=== PATIENT | female | born 1950 | race Caucasian/White ===

== ENCOUNTER 2016-10-16 08:36 | Emergency (ER) | payer MEDICARE, BC ==
[2016-10-16] MEDS ORDERED: NORMAL SALINE 1,000 ML IV ONE (08:50)
--- NOTE | 2016-10-16 08:50 | ERNOTE ---
Medical Problem HPI - General Chief Complaint: General Assessment Time Seen by Provider: 10/16/16 08:47 Source: patient Exam Limitations: no limitations - Immun/Allergies/Home Medications Immunizations: IMMUNIZATION HX Immunizations Up to Date Yes Allergies/Adverse Reactions: Allergies lorazepam Allergy (Verified 10/16/16 08:49) Home Medications: HOME MEDICATIONS Albuterol Sulfate [Proair Hfa] 8.5 gm IH PRN 07/23/15 [Last Taken Unknown] Levothyroxine Sodium [Synthroid] 50 mcg PO DAILY 07/23/15 [Last Taken Unknown] Pregabalin [Lyrica] 300 mg PO BID 07/23/15 [Last Taken Unknown] Simvastatin [Zocor] 40 mg PO HS 07/23/15 [Last Taken Unknown] Ondansetron [Zofran Odt] 4 mg PO Q6H PRN #20 tab 01/20/16 [Last Taken Unknown] Citalopram Hydrobromide [Citalopram HBr] 10 mg PO DAILY 10/16/16 [Last Taken Unknown] Cyanocobalamin [Vitamin B-12] 1,000 mcg PO DAILY 10/16/16 [Last Taken Unknown] Dexamethasone [Decadron] 2 mg PO DAILY 10/16/16 [Last Taken Unknown] Docusate Sodium [Colace] 100 mg PO BID 10/16/16 [Last Taken Unknown] Lactobacillus Rhamnosus GG [Culturelle] 1 tab PO DAILY 10/16/16 [Last Taken Unknown] Melatonin/Pyridoxine HCl (B6) [Melatonin 10 mg Tablet] 1 each PO DAILY 10/16/16 [Last Taken Unknown] Morphine Sulfate [Ms Contin] 45 mg PO BID 10/16/16 [Last Taken Unknown] Omeprazole [Prilosec] 20 mg PO DAILY 10/16/16 [Last Taken Unknown] Pregabalin [Lyrica] 300 mg PO BID #60 capsule 10/16/16 [Last Taken Unknown] Tiotropium [place] [Spiriva] 1 cap IH DAILY 10/16/16 [Last Taken Unknown] levETIRAcetam [Keppra] 500 mg PO BID 10/16/16 [Last Taken Unknown] - History of Present History Narrative: pt is here for abdominal pain and diarrhea and anorexia for eight days. denies fevers, has not taken any meds for this. She has stage III ovarian cancer - Patient's Past Medical History Patient History - Medical: Chronic Pain, Hypothyroidism Patient History - Cardiac/Respiratory: COPD, Hyperlipidemia Patient History - Cancer: Brain, Ovarian Patient History - Surgical Procedures: Back Surgery, Hysterectomy, T & A Patient History - Other: None - Family History Father Family History - Medical: Mother Family History - Medical: Family History - Cardiac/Respiratory: Myocardial Infarction - Social History Living Situations: home Abuse History: No History of abuse Psych History: Hx of Depression Alcohol Use: none Drug Use: none - Immunizations Immunizations Up to Date: Yes ED Progress - Results and Orders Patient's Lab Results:: I have reviewed the patient's lab results. - Vital Signs Patient's Vital Signs:: I have reviewed the patient's vital signs. Vital Signs: Vital Signs 10/16/16 08:42 Temperature 36.8 C Pulse Rate 66 Respiratory 12 Rate Blood Pressure 110/58 O2 Sat by Pulse 97 Oximetry - CT/Ultrasound CT/Ultrasound Narrative: CT does not reveal a colitis but a progression of the patient's tumor to the rectum. pt and daughter were advised of this. - Progress/Reassessment Chief Complaint: General Assessment Plan - Plan Plan: This patient has advancing of her ovarian carcinoma extending to the rectum. Has recently gotten done with chemotherapy and has diarrhea. Does not have any vomiting and in the absence of vomiting diarrhea is treated with replenishing fluids and electrolytes loss 2 through diarrhea. He was advised to drink plenty of Gatorade and Pedialyte. Initially patient was given Zofran and Dilaudid in this ER for pain control and pain management. I very strongly suggested that the patient to follow up with a shipyard painter. Since C. difficile was negative she will be discharged home with her Lyrica. Departure - Departure Clinical Impression: Abdominal pain Qualifiers: Abdominal location: unspecified location Qualified Code(s): R10.9 - Unspecified abdominal pain Ovarian cancer Qualifiers: Laterality: unspecified laterality Qualified Code(s): C56.9 - Malignant neoplasm of unspecified ovary Disposition: Home self-care Condition: Fair Instructions: Nausea, Adult Referrals: NONE,NONE [Primary Care Provider] - Prescriptions: Pregabalin [Lyrica] 300 mg PO BID #60 capsule
[2016-10-16] MEDS ORDERED: DIATRIZOATE MEGLU/DIATRIZO SOD 30 ML BTL ONE (09:02)
[2016-10-16] MEDS ORDERED: DIATRIZOATE MEGLU/DIATRIZO SOD 30 ML BTL PO ONE (09:03)
--- OUTSIDE RECORDS SUMMARY | 2016-10-16 09:04 | XMS REPORT | Continuity of Care Document ---
:1950 Author Organization [facility] [place] [address] Care Team Providers Name Role Phone Provider, None Per Patient Primary Care Provider Unavailable Source Comments This disclosure is being made pursuant to the [email or web address] program and maynot contain all information available regarding this patient.[facility] Active Allergies and Adverse Reactions No Known Allergies Current Medications Be aware that medications may not be up to date as of this document. Alwaysverify current medications with the patient. Prescription Sig. Disp. Refills Start Date End Date Status ibuprofen Take 600 mg by Active (ADVIL,MOTRIN) 600 MG mouth as needed. tablet levothyroxine Take 25 mcg by Active (SYNTHROID, LEVOTHROID) mouth every 25 MCG tablet morning. simvastatin (ZOCOR) 20 Take 20 mg by Active MG tablet mouth nightly. Magnesium Hydroxide Take 1 Dose by Active (MILK OF MAGNESIA PO) mouth as needed. ondansetron (ZOFRAN) 8 Take 1 tablet by 20 tablet 0 06/20/2013 Active MG tablet mouth every 6 (six) hours as needed. Diphenhydramine-APAP, Take 1 tablet by Active sleep, (EXCEDRIN PM PO) mouth as needed. HYDROcodone-acetaminoph Take 1 tablet by 120 tablet 0 07/14/2016 Active en (NORCO) 10-325 MG mouth every 6 per tablet (six) hours as needed for Pain. oxymorphone (OPANA ER) Take 1 tablet 60 tablet 0 07/14/2016 Active 20 MG 12 hr tablet (20 mg total) by mouth every 12 (twelve) hours. pregabalin (LYRICA) 300 Take 1 capsule 60 capsule 1 09/08/2016 Active MG capsule (300 mg total) by mouth 2 (two) times daily. Active Problems No known active problems Most Recent Encounters Date Type Specialty Providers Description 10/06/2016 Telephone Pain Medicine Gaetano Burger, DO 09/08/2016 Refill Pain Medicine Daily Zacarias MD Social History Tobacco Use Types Packs/Day Years Used Date Former Smoker 1 35 Quit: 08/05/2004 Alcohol Use Drinks/Week oz/Week Comments No Last Filed Vital Signs Vital Sign Reading Time Taken Blood Pressure 115/67 02/18/2016 1:25 PM CDT Pulse 52 02/18/2016 1:25 PM CDT Temperature - - Respiratory Rate - - Height - - Weight - - Body Mass Index - - Oxygen Saturation - - Plan of Care Health Maintenance Due Date Last Done Comments Hepatitis C Screening 1968 Tetanus/Pertussis (1 - Tdap) 1969 Colonoscopy 2000 Mammogram 2000 Well Adult Visit 2000 Zoster Vaccine 60+ 2010 Bone Density 11/18/2015 Pneumococcal Low/Medium Risk 65+ (1 of 2 - PCV13) 11/18/2015 Influenza Immunization (#1) 2016 Results from Last 3 Months Not on file
--- OUTSIDE RECORDS SUMMARY | 2016-10-16 09:05 | XMS REPORT | Continuity of Care Document ---
:1950 Author Organization [facility] ([facility]) Address [address] [place] [address] Phone [phone] Care Team Providers Name Role Phone Jevon Naranjo J Primary Care Provider [phone] Source Comments This disclosure is being made pursuant to the Care Everywhere program, applicable federal and state laws, and may not contain all informaitonavailable regarding this patient.[facility] ([facility]) Active Allergies and Adverse Reactions Allergen Noted Date Severity Reactions Comments Lorazepam 08/05/2015 Low Mental status changes Had ativan 06/26/16 without incident Current Medications Prescription Sig. Disp. Refills Start Date End Date Status pregabalin (LYRICA) Take 300 mg by Active 300 mg capsule mouth 2 times daily. Diphenhydramine-Kenan Take 1 tablet Active taminophen 38-500 by mouth at mg tab bedtime as needed. sennosides 8.6 mg Take 1 tablet Active tablet by mouth daily. hydrophilic Apply topically Active (AQUAPHILIC) as needed. ointment docusate 100 mg Take 100 mg by Active capsule mouth 2 times daily. levothyroxine 50 Take 50 mcg by Active mcg tablet mouth every morning before breakfast. simvastatin 40 mg Take 40 mg by Active tablet mouth every evening. citalopram 10 mg Take 10 mg by Active tablet mouth daily. acetaminophen 325 Take 2 tablets 60 tablet 3 08/07/2015 Active mg tablet (650 mg total) by mouth every 4 hours as needed. omeprazole 20 mg Take 20 mg by 10/03/2015 Active enteric coated mouth daily. capsule ondansetron 4 mg Take 1 tablet 60 tablet 5 01/22/2016 Active tablet (4 mg total) by mouth every 6 hours. promethazine 12.5 Take 1 tablet 30 tablet 5 01/22/2016 Active mg tablet (12.5 mg total) by mouth every 6 hours as needed. levETIRAcetam 500 Take 1 tablet 60 tablet 3 05/19/2016 Active mg tablet (500 mg total) by mouth 2 times daily. melatonin 10 mg Take 10 mg by Active tablet mouth at bedtime as needed. cyanocobalamin Take 1,000 mcg Active (VITAMIN B-12) by mouth daily. 1,000 mcg tablet lactobacillus Take 1 capsule Active rhamnosus (gg) by mouth daily. (CULTURELLE) 15 billion cell capsule ORAMAGIC-RX oral Mix as 315 mL 2 07/03/2016 Active wound rinse directed, then rinse mouth with 15 mL every 4 hours as needed for mouth/throat pain. hydrocortisone 5 mg Take 2 tablets 60 tablet 3 08/06/2016 Active tablet (10 mg total) by mouth 2 times daily. dexamethasone 2 mg Take 1 tablet 60 tablet 3 09/01/2016 Active tablet (2 mg total) by mouth 2 times daily. albuterol 90 Use 2 Puffs by Active mcg/Actuation inhalation inhaler every 6 hours as needed. tiotropium Use 18 mcg by Active (SPIRIVA) 18 mcg inhalation inhalation capsule daily. morpHINE 15 mg CR Take 3 tablets 180 tablet 0 09/21/2016 Active tablet (45 mg total) by mouth 2 times daily. azithromycin 250 mg Take 1 tablet 2 tablet 0 09/27/2016 Active tablet (250 mg total) by mouth every 24 hours. oxyCODONE 10 mg Take 1 tablet 120 tablet 0 10/06/2016 Active immediate release (10 mg total) tablet by mouth every 6 hours as needed for Pain. oxyCODONE 10 mg Take 1 tablet 120 tablet 0 07/03/2016 Discontinued immediate release (10 mg total) 7 tablet by mouth every 6 hours as needed for Pain. morpHINE 15 mg CR Take 3 tablets 180 tablet 0 08/03/2016 Discontinued tablet (45 mg total) 7 by mouth 2 times daily. Active Problems Problem Noted Date Pulmonary emphysema 09/27/2016 Gastroenteritis and colitis, viral 07/03/2016 Ovarian cancer 06/22/2016 CKD (chronic kidney disease) stage 3, GFR 30-59 ml/min 01/22/2016 Neutropenia 01/22/2016 Compression of brain 08/05/2015 Overview: S/p craniotomy tumor resection on 08/05/15 S/P craniotomy 08/05/2015 Mass of temporoparietal region of brain 08/03/2015 Cerebral edema 08/02/2015 Overview: Decadron taper Metastatic adenocarcinoma to brain 08/02/2015 Overview: Ovarian primary Neoplasm of brain causing mass effect on adjacent structures 08/02/2015 Overview: S/p craniotomy tumor resection on 08/05/15 Peritoneal carcinomatosis 08/02/2015 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 Hydronephrosis 01/11/2013 Urinary frequency 01/11/2013 Delirium, induced by drug 06/21/2012 Hypokalemia 06/20/2012 Dyspnea 06/18/2012 Anxiety 06/18/2012 Dyslipidemia 06/16/2012 Elevated serum creatinine: possible acute kidney injury 06/16/2012 Stopped smoking with greater than 40 pack year history 06/16/2012 Urge incontinence 06/16/2012 Hypothyroidism 06/10/2012 Resolved Problems Problem Noted Date Resolved Date Shortness of breath 09/25/2016 09/27/2016 Intractable vomiting with nausea 01/21/2016 01/22/2016 Acute blood loss anemia 06/21/2012 01/22/2016 Acute postoperative pain 06/21/2012 01/22/2016 Abdominal pain 06/18/2012 01/22/2016 BMI (body mass index) 20.0-29.9 06/16/2012 01/22/2016 Pelvic mass in female 06/10/2012 01/22/2016 Most Recent Encounters Date Type Specialty Providers Description 10/16/2016 [facility] Radiation Oncology Shar Murphy MD Subj: Upcoming Appt Encounter Reminder 10/07/2016 Office Visit Diabetes Services Default, Other Subj: Upcoming Appt Billg - Defo Reminder Viviana Torres MD 10/06/2016 [facility] Radiation Oncology Shar Murphy MD Dx: Ovarian cancer , Encounter unspecified laterality (Primary Dx) 10/06/2016 [facility] Radiation Oncology Shar Murphy MD Subj: Upcoming Appt Encounter Reminder 10/06/2016 [facility] Lucero Parker Chief Comp: Michele RN Appointment Info 10/05/2016 [facility] Radiation Oncology Shar Murphy MD Subj: Upcoming Appt Encounter Reminder 10/02/2016 [facility] Radiation Oncology Shar Murphy MD Subj: Upcoming Appt Encounter Reminder 10/02/2016 [facility] Radiation Oncology Shar Murphy MD Subj: Upcoming Appt Encounter Reminder 10/01/2016 [facility] Radiation Oncology Shar Murphy MD Subj: Upcoming Appt Encounter Reminder 09/30/2016 [facility] Radiation Oncology Shar Murphy MD Subj: Upcoming Appt Encounter Reminder 09/29/2016 [facility] Radiation Oncology Shar Murphy MD Subj: Upcoming Appt Encounter Reminder 09/28/2016 [facility] Radiation Oncology Shar Murphy MD Subj: Upcoming Appt Encounter Reminder 09/28/2016 Nurse Triage [facility] Lary Piper, Chief Comp: IP Inpatient - Adult welt sole layer Follow-up Call 09/25/2016 [facility], Dx: Shortness of - Encounter Inpatient - Adult Amilcar Lombardo MD breath (Primary Dx) 09/27/2016 Carrington Sykes MD 09/25/2016 [facility] Radiation Oncology Shar Murphy MD Chief Comp: Patient Encounter Reported Reason For Visit 09/25/2016 [facility] Radiation Oncology Shar Murphy MD Chief Comp: Patient Encounter Reported Reason For Visit 09/24/2016 [facility] Radiation Oncology Shar Murphy MD Chief Comp: Patient Encounter Reported Reason For Visit 09/23/2016 [facility] Radiation Oncology Shar Murphy MD Chief Comp: Patient Encounter Reported Reason For Visit 09/22/2016 [facility] Radiation Oncology Shar Murphy MD Chief Comp: Patient Encounter Reported Reason For Visit 09/21/2016 [facility] Hematology and Bro Hirsch Dx: Ovarian cancer, Encounter Oncology MD Dangelo unspecified laterality (Primary Dx) 09/18/2016 [facility] Radiation Oncology Shar Murphy MD Chief Comp: Patient Encounter Reported Reason For Visit 09/18/2016 [facility] Radiation Oncology Shar Murphy MD Dx: Brain metastasis Encounter (Primary Dx) 09/17/2016 Office Visit [facility] Hematology and [place], Monty Dx: Metastatic Oncology MD Lobo adenocarcinoma to brain (Primary Dx) 09/17/2016 Hospital Radiology Clinton Kaye Dx: Pre-procedural Encounter MD examination (Primary Dx) 09/10/2016 [facility] Hannah Barbosa RN Chief Comp: Follow-up 08/31/2016 [facility] Hematology and Bro Hirsch Subj: Upcoming Appt Encounter George Pierson MD Reminder 08/17/2016 [facility] Hematology and Bro Hirsch Subj: Upcoming Appt Encounter Oncology MD Dangelo Reminder 08/13/2016 Office Visit [facility] Hematology and Monty Dunham Subj: Appointment Oncology MD Lobo Scheduled 08/12/2016 [facility] Neurology Desmond Ramsey, Dx: Aphasia Encounter PhD determined by examination (Primary Dx) 08/06/2016 Telephone Radiation Oncology Shar Murphy MD Chief Comp: Symptom Management 08/03/2016 [facility] and Bro Hirsch Dx: Ovarian cancer, Encounter Oncology MD Dangelo unspecified laterality (Primary Dx) 07/20/2016 [facility] Hematology and Bro Hirsch Subj: Upcoming Appt Encounter Oncology MD Dangelo Reminder 07/17/2016 [facility] Radiology Susan Monoladonna, Dx: Brain metastases Encounter 07/17/2016 [facility] Radiation Oncology Shar Murphy MD Dx: Adrenal Encounter insufficiency due to steroid withdrawal (Primary Dx) 07/16/2016 Office Visit OBG Jevon Daniel Subj: Appointment MD Michele Scheduled 07/16/2016 Nurse Triage [facility] Carolina Diego, Chief Comp: IP Inpatient - Adult welt sole layer Follow-up Call Social History Tobacco Use Types Packs/Day Years Used Date Former Smoker Cigarettes 1 40 Quit: 04/16/2005 Smokeless Tobacco: Never Used Tobacco Cessation:Counseling Given: Yes Comments: Alcohol Use Drinks/Week oz/Week Comments No 0 Standard drinks or equivalent 0.0 Last Filed Vital Signs Vital Sign Reading Time Taken Blood Pressure 119/67 10/06/2016 9:59 AM CDT Pulse 62 10/06/2016 9:59 AM CDT Temperature 37.2 C (99 F) 10/06/2016 9:59 AM CDT Respiratory Rate 16 09/27/2016 10:08 AM CDT Height 1.6 m (5' 2.99") 09/17/2016 4:04 PM CDT Weight 55.9 kg (123 lb 3.8 oz) 10/06/2016 9:59 AM CDT Body Mass Index 21.84 10/06/2016 9:59 AM CDT Oxygen Saturation 97% 10/02/2016 10:04 AM CDT Plan of Care Date Type Specialty Providers Description 10/21/2016 Appointment Diabetes Services Default, Other Billg - Defo [address] [place] [address] [phone] (Fax) Subj: Upcoming Appt Al José Miguel Taylor MD [address] [place] [address] [phone] (Fax) Reminder 11/05/2016 Appointment Radiation Oncology Shar Murphy MD Chief Comp: Patient [address] [facility] Reported [place] [address] Visit [phone] (Fax) 11/05/2016 Appointment Respiratory Therapy Default, Other Billg Subj: Appointment - Defo Scheduled [address] [place] [address] [phone] (Fax) 11/05/2016 Appointment Med Pulmonary Default, Other Billg - Defo [address] [place] [address] [phone] (Fax) Subj: Appointment Clinic, Obstructive Pulmonary Disease Scheduled 11/05/2016 Appointment Med Hematology and Monty Dunham, Subj: Appointment Oncology MD Scheduled [address] [place] [address] [phone] (Fax) Health Maintenance Due Date Last Done Comments HCV Screening 1950 Hepatitis B Vaccine (1 of 3 - Primary 1950 Series) Tdap Vaccine 1961 Lipid Disorder Screening 1968 Td Vaccine 1968 Cervical Cancer Screening 1980 Colonoscopy 11/16/2000 Zoster Vaccine 2010 Mammogram 07/25/2015 07/24/2014, 07/24/2014 (Previously completed), 02/20/2013 (Previously completed) Osteoporosis Screening (DXA Bone 11/18/2015 Density) Pneumococcal Vaccine (1 of 2 - PCV13) 11/18/2015 Influenza Vaccine: Seasonal (Season 12/15/2016 Ended) Results from Last 3 Months RAD ONC MSQ TREATMENT SUMMARY (10/06/2016 9:37 AM)Only the most recent of11 resultswithin the time period is included. Component Value Range Treatment Course Number 2 Prescribed Fractional Dose 300 cGray Prescribed Total Dose 3000 cGray Actual Fractions Delivered 10 Actual Session Delivered Dose 300 cGray Actual Total Dose 3000 cGray Prescribed Technique 3 Field Elapsed Days 13 Start Date 09/23/2016 Last Date 10/06/2016 Prescribed Number of Fractions 10 Treatment Site Pelvis DIFFERENTIAL (09/27/2016 8:43 AM)Only the most recent of3 resultswithin the time period is included. Component Value Range % Neutrophils-Auto Diff 85.2 % Neutrophils-Auto Diff 5520 1761-8432 /MM3 % Lymphocytes-Auto Diff 7.7 % Lymphocytes-Auto Diff 500(L) 875-3300 /MM3 % Monocytes-Auto Diff 4.9 % Monocytes-Auto Diff 320 130-860 /MM3 % Eosinophils-Auto Diff 0.6 % Eosinophils-Auto Diff 40 40-390 /MM3 % Basophils 0.2 % Basophils-Auto Diff 10 10-136 /MM3 % Immature Granulocytes-Auto Diff 1.4 % Immature Granulocytes-Auto Diff 90 /MM3 Specimen Whole Blood CBC (COMPLETE BLOOD COUNT) (09/27/2016 8:43 AM)Only the most recent of3 resultswithin the time period is included. Component Value Range WBC Count 6.5 3.7-10.5 K/MM3 RBC Count 3.06(L) 4.00-5.20 M/MM3 Hemoglobin 9.4(L) 11.9-15.5 g/dL Hematocrit 30(L) 35-47 % MCV (Mean Corpuscular Volume) 99 82-99 FL MCH (Mean Corpuscular Hemoglobin) 31 25-35 PG MCHC (Mean Corpuscular Hemoglobin Concentration) 31(L) 32-36 % Platelet Count 316 150-400 K/MM3 MPV (Mean Platelet Volume) 11.1 9.4-12.3 FL RBC Dist Width-STD 58.7(H) 36.4-46.3 FL RBC Distrib Width 16.3(H) 9.0-14.5 % Nucleated RBC 0 /100 WBC Specimen Whole Blood CBC WITH DIFFERENTIAL (09/27/2016 8:43 AM)Only the most recent of3 resultswithin the time period is included. Specimen Whole Blood Narrative The following orders were created for panel order CBC WITH DIFFERENTIAL. Procedure Abnormality Status --------- ------ CBC (COMPLETE BLOOD COUNT)[[id number]] AbnormalFinal result DIFFERENTIAL[[id number]] AbnormalFinal result Please view results for these tests on the individual orders. BASIC METABOLIC PANEL W/ CALCIUM (CHEM 8) (09/27/2016 8:43 AM)Only the most recent of2 resultswithin the time period is included. Component Value Range Sodium 139 135-145 mEq/L Potassium 3.7 3.5-5.0 mEq/L Chloride 96 95-107 mEq/L CO2 26 22-29 mEq/L BUN 27(H) 10-20 mg/dL Creatinine 1.1(H)Comment: 0.5-1.0 mg/dL Creatinine switched to enzymatic method on 09/23/2010.GFR equation switched to IDMS-traceable MDRD equation on 09/23/2010. Calculated GFR values are not valid in clinical settings where serum creatinine is changing. Glucose 134(H)Comment: 65-99 mg/dL The Expert Committee on the Diagnosis and Classification of Diabetes has defined impaired fasting glucose as greater than or equal to 100 mg/dL but less than 126 mg/dL.(Diabetes Care 28 (Suppl 1)S41,2005) Calcium 8.9 8.5-10.5 mg/dL Anion Gap 17(H) <17 mEq/L Calculated GFR 50(L) >60 mL/min/1.73 m2 Specimen Blood CREATININE (09/26/2016 7:47 AM) Component Value Range Creatinine 1.1(H)Comment: 0.5-1.0 mg/dL Creatinine switched to enzymatic method on 09/23/2010.GFR equation switched to IDMS-traceable MDRD equation on 09/23/2010. Calculated GFR values are not valid in clinical settings where serum creatinine is changing. Calculated GFR 50(L) >60 mL/min/1.73 m2 Specimen Blood RESPIRATORY VIRUS PCR (09/25/2016 5:08 PM) Component Value Range Adenovirus Not DetectedComment:This is an appended report. Not Detected These results have been appended to a previously final verified report. Human [place]-Pneumovirus Not DetectedComment:This is an appended report. Not Detected These results have been appended to a previously final verified report. Influenza A Not Detected Not Detected Influenza B Not Detected Not detected H1N1 Influenza Not Detected Not Detected Parainfluenza 1 Virus Not DetectedComment:This is an appended report. Not Detected These results have been appended to a previously final verified report. Parainfluenza 2 Virus Not DetectedComment:This is an appended report. Not Detected These results have been appended to a previously final verified report. Parainfluenza 3 Virus Not DetectedComment:This is an appended report. Not detected These results have been appended to a previously final verified report. RSV A Not DetectedComment:This is an appended report. Not Detected These results have been appended to a previously final verified report. RSV B Not DetectedComment:This is an appended report. Not Detected These results have been appended to a previously final verified report. Specimen Other - Nasopharyngeal swab Narrative Test Methodology:PCR amplification The performance characteristics of this test were determined by the [facility] Microbiology [facility] Molecular Pathology Laboratory.It has not been cleared or approved by the U.S. Food and DrugAdministration (FDA). The FDA has determined that such clearance or approval is not necessary.This test is for clinical purposes.It should not be regarded as investigational or for research. The laboratory is certified under the Clinical Laboratory Improvement Amendments of 1988 (CLIA) as qualified to perform high complexity clinical laboratory testing. VENOUS BLOOD GAS ([facility]) (09/25/2016 4:08 PM) Component Value Range pH, Venous 7.39 7.33-7.43 pCO2, Venous 45 37-50 torr pO2, Venous 38 37-47 torr Base Excess, Venous 2 -2-2 mEq/L Bicarbonate, Venous 27(H) 22-26 mEq/L Total CO2, Venous 29 24-32 mEq/L Temperature, Venous 37.0 Degrees C Specimen Whole Blood MICROSCOPIC URINALYSIS (09/25/2016 2:53 PM) Component Value Range White Blood Cells, Urine <1 0-5 /HPF Red Blood Cells, Urine <1 0-2 /HPF Squamous Epithelial Cells, Urine 7 <=10 /LPF Specimen Urine URINALYSIS WITH REFLEX CULTURE (09/25/2016 2:53 PM) Component Value Range Color, Urine Yellow Straw, Pale Yellow, Yellow, Clear, None Clarity, Urine Clear Clear pH, Urine 6.0 <9.0 Spec [place], Urine 1.020 1.000-1.030 Glucose, Urine Negative Negative Blood, Urine Negative Negative Ketones, Urine Negative Negative Protein, Urine Negative Negative Urobilinogen, Urine 1+(A) Normal Bilirubin, Urine Negative Negative Leukocyte Esterase, Urine Negative Negative Nitrite, Urine Negative Negative Specimen Urine URINALYSIS WITH REFLEXED CULTURE AND MICROSCOPIC EXAM (09/25/2016 2:53 PM) Specimen Culture - Urine, Midstream clean catch Narrative The following orders were created for panel order URINALYSIS WITH REFLEXED CULTURE AND MICROSCOPIC EXAM. Procedure Abnormality Status --------- ------ URINALYSIS WITH REFLEX C...[[id number]]AbnormalFinal result MICROSCOPIC URINALYSIS[[id number]] Normal Final result URINE CULTURE, REFLEXED[[id number]] Please view results for these tests on the individual orders. CHEST- PA& LATERAL (09/25/2016 1:44 PM) Impressions Findings / Impression: Normal appearance of the cardiomediastinal silhouette and pulmonary vasculature. Hyperinflated lungs with emphysematous changes. No large area of focal consolidation in the lungs. No pleural effusion or pneumothorax. Narrative Procedure: CHEST- PA & LATERAL Clinical Indication: Shortness of breath and fever. Technique: PA and lateral chest radiograph. Comparison: Chest radiograph dated 06/27/2016 Procedure Note Dorian, Incoming Imaging Results - WedSeptember 25, 2016 3:42 PM CDT Procedure: CHEST- PA & LATERAL Clinical Indication: Shortness of breath and fever. Technique: PA and lateral chest radiograph. Comparison: Chest radiograph dated 06/27/2016 IMPRESSION Findings / Impression: Normal appearance of the cardiomediastinal silhouette and pulmonary vasculature. Hyperinflated lungs with emphysematous changes. No large area of focal consolidation in the lungs. No pleural effusion or pneumothorax. BLOOD CULTURE (09/25/2016 1:01 PM)Only the most recent of3 resultswithin the time period is included. Component Value Range Blood Culture No Growth Specimen Blood - Blood, Venipuncture LACTIC ACID, WHOLE BLOOD ([facility]) (09/25/2016 12:57 PM) Component Value Range Lactic Acid, Whole Blood 1.6Comment: 0.5-2.0 mEq/L Glycolate, the principle toxic metabolite of ethylene glycol, can cause artifactual elevation of measured lactate. Specimen Whole Blood ECG - EKG 12 LEAD (09/25/2016 12:40 PM) Component Value Range ECG SEVERITY - NORMAL ECG - VENT. RATE 87 bpm RR 690 ms P-R INTERVAL 148 ms QRSD INTERVAL 88 ms QT INTERVAL 348 ms QTC INTERVAL 419 ms P AXIS 83 degrees QRS AXIS 73 degrees T WAVE AXIS 61 degrees REPORT SINUS RHYTHM [Now Present] THE SINUS RATE HAS INCREASED FRO 44 TO 87 BPM. Otherwise no significant change Interpreting Physician: PAVAN LAWRENCE MD CT CHEST ABDOMEN PELVIS W CONTRAST ([id number], [id number]) (09/17/2016 2:39 PM) Impressions Impression: 1. Increase in size of pelvic metastases and slight increase in size of retroperitoneal lymphadenopathy consistent with increasing metastatic disease. Increase in size of left upper quadrant perisplenic peritoneal implant. 2. No evidence of pulmonary nodule, moderate centrilobular COPD likely related to smoking. 3. Increase in size of splenic hypodensity suggestive of metastasis. Consider ultrasound for correlation. 4. Large amount of stool suggests constipation. 5. Mild to moderate right renal atrophy. Narrative Procedure: CT CHEST ABDOMEN PELVIS W CONTRAST ([id number], [id number]) Clinical Indication: . Ovarian carcinoma, restaging Technique: CT exam of the chest, abdomen, and pelvis is performed following the uneventful administration of 97 cc Isovue-370 IV contrast. Comparison: 06/27/2016 Findings: Neck base and axilla: No lymphadenopathy. Thyroid gland appears normal. Mediastinum and arianna: No lymphadenopathy. Heart and thoracic aorta: Normal. Airway: Patent. Lungs and pleura: Moderate bullous emphysema. No pulmonary nodules or masses. Mild stable apical pleural-parenchymal scarring. Esophagus: Normal. Chest wall soft tissues: Normal Liver: Normal Bile ducts: Not dilated. Gallbladder: Normal. Pancreas: Normal Spleen: The hypoechoic lesion 15 mm in the inferior pole medially has grown in size, suggestive of metastasis. Suggest splenic ultrasound for further evaluation. Adrenal glands: Normal Kidneys: Mild to moderate right renal atrophy. Normal left kidney. Ureters: Normal Bladder: Not well distended Aorta: Mild calcific atherosclerosis Retroperitoneum: Increase in retroperitoneal lymphadenopathy. Peritoneum: Small amount of ascites in the pelvis. Increase in size of perisplenic left upper quadrant peritoneal implant, image 3-1 76. Mesentery: Normal Stomach: Not distended. Small bowel: Not distended Colon: Large amount of stool suggests constipation. Appendix: No pathology identified Extraperitoneal pelvis: Slight increase in size of pelvic mass consistent with ovarian metastases in the cul-de-sac measuring approximately 3.1 x 4.4 cm, compared to 4.0 x 3.4 cm. There is also a new, mostly necrotic nodule in the superior pelvis, image 2-162, most consistent with a metastasis. Uterus: Removed Ovaries: Probably removed Abdominal wall: Normal Bones: No acute fracture or destructive bone lesion. The patient is status post post posterior fusion of L4-S1. Procedure Note Dorian, Incoming Imaging Results - Nithya September 17, 2016 5:47 PM CDT Procedure: CT CHEST ABDOMEN PELVIS W CONTRAST ([id number], [id number]) Clinical Indication: . Ovarian carcinoma, restaging Technique: CT exam of the chest, abdomen, and pelvis is performed following the uneventful administration of 97 cc Isovue-370 IV contrast. Comparison: 06/27/2016 Findings: Neck base and axilla: No lymphadenopathy. Thyroid gland appears normal. Mediastinum and arianna: No lymphadenopathy. Heart and thoracic aorta: Normal. Airway: Patent. Lungs and pleura: Moderate bullous emphysema. No pulmonary nodules or masses. Mild stable apical pleural-parenchymal scarring. Esophagus: Normal. Chest wall soft tissues: Normal Liver: Normal Bile ducts: Not dilated. Gallbladder: Normal. Pancreas: Normal Spleen: The hypoechoic lesion 15 mm in the inferior pole medially has grown in size, suggestive of metastasis. Suggest splenic ultrasound for further evaluation. Adrenal glands: Normal Kidneys: Mild to moderate right renal atrophy. Normal left kidney. Ureters: Normal Bladder: Not well distended Aorta: Mild calcific atherosclerosis Retroperitoneum: Increase in retroperitoneal lymphadenopathy. Peritoneum: Small amount of ascites in the pelvis. Increase in size of perisplenic left upper quadrant peritoneal implant, image 3-1 76. Mesentery: Normal Stomach: Not distended. Small bowel: Not distended Colon: Large amount of stool suggests constipation. Appendix: No pathology identified Extraperitoneal pelvis: Slight increase in size of pelvic mass consistent with ovarian metastases in the cul-de-sac measuring approximately 3.1 x 4.4 cm, compared to 4.0 x 3.4 cm. There is also a new, mostly necrotic nodule in the superior pelvis, image 2-162, most consistent with a metastasis. Uterus: Removed Ovaries: Probably removed Abdominal wall: Normal Bones: No acute fracture or destructive bone lesion. The patient is status post post posterior fusion of L4-S1. IMPRESSION Impression: 1. Increase in size of pelvic metastases and slight increase in size of retroperitoneal lymphadenopathy consistent with increasing metastatic disease. Increase in size of left upper quadrant perisplenic peritoneal implant. 2. No evidence of pulmonary nodule, moderate centrilobular COPD likely related to smoking. 3. Increase in size of splenic hypodensity suggestive of metastasis. Consider ultrasound for correlation. 4. Large amount of stool suggests constipation. 5. Mild to moderate right renal atrophy. CREATININE, POINT OF CARE (09/17/2016 2:11 PM) Component Value Range POC CREATININE 1.0 0.5-1.0 mg/dL POC CALCULATED GFR 56(A) 60 mL/min/1.73 m2 Specimen Blood ANN NEUROPSYCHOLOGY CONSULT - COGNITIVE ASSESSMENT (08/14/2016 3:46 PM) Desmond Alexander, PHD 08/14/20163:46 PM NEUROPSYCHOLOGY CONSULT NOTE REASON FOR REQUEST:Hx of brain mets with hx of radiation. Patient having decrease of metal processes. Please evaluate. REQUESTED BY: Shar Murphy MD. 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 She was accompanied to exam by her daughter, Radha Quiroz. BACKGROUND INFORMATION Ms. Jenkins was referred for neuropsychological evaluation by Dr. Shar Murphy to assess cognitive functioning secondary to recurrent ovarian cancer with brain metastasis and treatment. Medical records indicated that Ms. Jenkins was initially diagnosed with ovarian cancer in May 2012 and was started on chemotherapy in October 2013. MRI and CT scans of the brain (08/03/15) read by Radiology showed a right parietotemporal lobe abnormality, concerning for metastatic disease. Resection of the mass was performed on 08/05/15. Recent MRI of the brain (07/17/16) showed mild interval improvement in the nodular enhancement along the anterosuperior aspect of the surgical cavity in the right temporoparietal lobe. Medical history also includes hypothyroidism, dyslipidemia, and anxiety. Current medications include citalopram, acetaminophen, levetiracetam, morphine, ondansetron, oxycodone, Lyrica, and promethazine. She is currently on her fourth line of chemotherapy, being treated with gemcitabine. On interview today, Ms. Jenkins reported that she first noticed having memory and language difficulties about the time of her brain resection in July 2015. She and her daughter both agreed that her issues with memory have worsened since then. Her daughter elaborated that the patient has been feeling depressed because of her memory problems, typically staying in bed a lot of the time and not participating in activities that she is capable of. The patient denied participating in psychotherapy or seeing a psychiatrist. She lives at home with her , who cooks and helps with other instrumental ADLs. Her daughter manages her medications. She is not driving at present. She described sleeping about 5 hours/night, frequently waking up during the night. She reported sleeping about 6 hours last night. During the interview, she denied experiencing any pain. However, approximately 30 minutes into the exam, she reported that she was starting to have a headache. Her headache reportedly worsened approximately 1.5 hours later (to 8 on a 10-point scale), and she said her headaches worsen when she has to concentrate. During the exam, she took a scheduled dose of medications, which included pain medications. BEHAVIORAL OBSERVATIONS Ms. Jenkins was pleasant and cooperative. Although speech was fluent, well-articulated and without flagrant paraphasias, she exhibited word-finding difficulty and poor (imprecise) word selection at times. Comprehension was grossly intact to conversation. Thought processes were unremarkable. Judgment appeared good.Based on congruence between self-reported functioning and other information regarding functioning, insight is adequate. Mood was depressed, with congruent affect. Ms. Jenkins effort was good during the exam. RESULTS Orientation was intact for personal information. While orientation to aspects of time and place were impaired, it is possible that aphasic errors may have interfered with her responses. Intellect/Achievement: Performance on a reading test validated for estimation of premorbid intellect was in the borderline range, and abstract verbal reasoning was impaired. However, in hindsight it appears that aphasia also compromised performance on these measures. Nonverbal reasoning on a test of visuoperceptual pattern recognition and part-whole analysis was average. Nonverbal reasoning on a test requiring identification of major anomalies (missing essential details) in visual scenes was average. Nonverbal sequential reasoning regarding pictorially-presented behavioral activities and social interactions was average.? ? Attention, Working Memory & Speed of Processing: Auditory attention and working memory as assessed by digit repetition and sequencing were low average. Attention and working memory on a task requiring immediate memory for spatial sequencing were average. Speeded visual search for complex symbols and matching to sample was borderline. Speeded visual scanning under focused attention was low average.?Visual scanning with the addition of executive demands for mental shifting between well-established cognitive sets was also low average. Language: Confrontation naming was very impaired. Associative verbal fluency to alphabetic constraint was impaired; associative verbal fluency to semantic constraint was impaired.Sentence repetition was impaired. Oral comprehension for questions and paragraph-length stories of modest complexity was impaired. Speed of reading for comprehension was impaired by marked slowing, although without errors. Visuoperceptual & Visuospatial Abilities: Near visual acuity with correction was 20/20 to Maria E screening. Two-dimensional constructional copying of a complex geometric figure was severely impaired, and notable for inadequate attention to detail, poor self-monitoring, and failure to correct obvious errorsdespite instructions emphasizing performing with maximum accuracy. Visuoperceptual discrimination between highly similar complex stimuli (faces) was moderately impaired. Visuospatial aspects of clock drawing were impaired, as the spacing between the numbers were inconsistent and the hands representing the time were drawn from the 12. Learning & Memory: Acquisition of verbal information (an extensive word list) over repeated presentations was impaired a largely flat learning curve. Recall of the word list after a short delay interval and after a further half-hour delay recall were severely impaired. Delayed recognition of the list was borderline, and notable for a high number of false positive responses. As described with previous verbally-mediated tasks, performance on this task may be impacted by her language impairments (aphasia). Immediate recall and delayed recall of paragraph-length narrative information were average, and delayed recognition was low average. Visual memory for complex visual stimuli (previously unfamiliar faces) after a brief delay was average. Delayed recognition of the faces was low average. Incidental memory for the complex geometric figure copied earlier in the exam was impaired. Executive Functioning: As noted above, cognitive shifting was low average to average on a speeded visual scanning task.?Speeded response generation on novel tasks (associative verbal fluency to various constraints) were borderline to impaired.?In addition, performance on a visuoconstructional task was reflected poor executive functioning. Mood: Ms. Jenkins endorsed a level of symptoms consistent with severe depression and moderate anxiety. SUICIDE RISK SCREENING Suicide risk screening was completed with the following positive results:? agitation; relentless anxiety; severe insomnia; and passive suicidal ideation. The following intervention was recommended:Referral for psychotherapeutic care. IMPRESSIONS Ms. Jenkins neuropsychological evaluation is most notable for significant aphasia, with impairments in comprehension of speech and reading, very impaired word-finding and naming, and impaired repetition. The aphasia is consistent with right temporal dysfunction in a left-handed individual with evident reversed cerebral dominance for language. Her language impairments appear to underlie her variable performances in memory and verbal reasoning, contributing to difficulties processing and retaining verbally-mediated information.Processing of visuospatial information is more mildly compromised. In addition to the primary effect of the right temporal mass and resection, it is likely that other factors, particularly headaches and other pain, sleep disturbance, anxiety, depression and medication side effects, also contribute to day-to-day difficulties. RECOMMENDATIONS Preliminary results and recommendations were discussed with Ms. Jenkins and her daughter, and all questions were answered.? 1. Her health and safety are of the upmost priority.When family is arriving at decisions about whether she should or shouldnt be encouraged (or permitted) to engage in a particular activity, safety and well-being she be a primary consideration. 2. We recommend her family and other loved ones help her increase her quality of life by encouraging her to participate in activities she enjoys and assisting her in those activities as needed, while being very thoughtful about whether she should be urged to participate in activities that are very frustrating for her. 3. Participating in psychotherapy may be beneficial in managing her mood symptoms and behavioral issues (i.e., lowered activity level). We recommend that Ms. Jenkins sees a therapist who is understanding of her language impairments and is able to accommodate this during therapy. If possible, we also encourage her or daughter to participate in on the therapy sessions to guide her in remembering strategies implemented in session. 4. We encourage her family to help her with her memory by working through her language impairment. For example, when presenting her with information or instructions, it would be beneficial to ask her to repeat back what was said.Above all, patience will be very important in communication with her. 5. We would be pleased to re-evaluate in the future as clinically indicated. STAFF INVOLVED Shaun Ramsey, PhD, ABPP/CN Associate Clinical Professor Dept. of Neurology COGNITIVE TESTING (administered by graduate practicum student) 4 hours NEUROPSYCHOLOGIST TIME 4 hours (Record review, interview, interpreting and integrating findings, providing feedback & counseling, and preparing written report) MRI BRAIN W/WO CONTRAST ([id number]) (07/17/2016 11:22 AM) Impressions Impression: 1. Mild interval improvement in the nodular enhancement along the anterosuperior aspect of the surgical cavity in the right temporoparietal lobe. Interval decrease in the surrounding FLAIR signal. Continued imaging follow-up is suggested. Narrative Procedure: MRI BRAIN W/WO CONTRAST ([id number]) Indication: Brain metastases status post resection, radiation therapy completed 09/04/2015 Technique: Multisequence, multiplanar MRI of the brain before and after the uneventful administration of 5.5 mL Gadavist IV contrast. Perfusion data were obtained to further characterize the lesion. Comparison: 05/19/2016 Findings: Postsurgical change of right temporoparietal mass resection is again noted. There is mild interval decrease in the prominence of the nodular enhancement along the anterosuperior aspect of the surgical cavity. Otherwise, the surgical cavity appears unchanged in size and appearance. No new areas of nodular enhancement. No new masses identified. There is minimal interval decrease in the surrounding FLAIR signal. Perfusion data are nondiagnostic. There is no acute infarct or intra or extra-axial hemorrhage. The ventricles, cortical sulci and basal cisterns are otherwise symmetric and appropriate. Normal brainstem and posterior fossa. The pituitary and suprasellar region are unremarkable. The major intracranial flow-voids are preserved. Normal orbits. The paranasal sinuses and mastoid air cells are clear. Normal bone marrow signal. Procedure Note Dorian, Incoming Imaging Results - WedJul 17, 2016 4:27 PM SYNTHETIC CHEMIST Procedure: MRI BRAIN W/WO CONTRAST ([id number]) Indication: Brain metastases status post resection, radiation therapy completed 09/04/2015 Technique: Multisequence, multiplanar MRI of the brain before and after the uneventful administration of 5.5 mL Gadavist IV contrast. Perfusion data were obtained to further characterize the lesion. Comparison: 05/19/2016 Findings: Postsurgical change of right temporoparietal mass resection is again noted. There is mild interval decrease in the prominence of the nodular enhancement along the anterosuperior aspect of the surgical cavity. Otherwise, the surgical cavity appears unchanged in size and appearance. No new areas of nodular enhancement. No new masses identified. There is minimal interval decrease in the surrounding FLAIR signal. Perfusion data are nondiagnostic. There is no acute infarct or intra or extra-axial hemorrhage. The ventricles, cortical sulci and basal cisterns are otherwise symmetric and appropriate. Normal brainstem and posterior fossa. The pituitary and suprasellar region are unremarkable. The major intracranial flow-voids are preserved. Normal orbits. The paranasal sinuses and mastoid air cells are clear. Normal bone marrow signal. IMPRESSION Impression: 1. Mild interval improvement in the nodular enhancement along the anterosuperior aspect of the surgical cavity in the right temporoparietal lobe. Interval decrease in the surrounding FLAIR signal. Continued imaging follow-up is suggested.
[2016-10-16 09:14] LABS: Hematocrit 33.4 % (37.0-47.0); Hemoglobin 10.4 gm/dL (12.5-16.0); Mean Cell Volume 100.3 fl (78-100); Mean Corpuscular Hemoglobin 31.2 pg (27-31); Mean Corpuscular Hgb Conc 31.1 g/dl (32-36); Mean Platelet Volume 10.3 fl (6.0-9.5); Neutrophil # 7.1 K/mm3 (1.3-6.0); Neutrophil % 81.3 % (42-75.0); Platelet Count 172 K/mm3 (150-450); Red Blood Count 3.33 M/mm3 (4.2-5.4); Red Cell Distribution Width 16.9 % (11.5-14.0); White Blood Count 8.7 K/mm3 (4.0-10.5)
[2016-10-16 09:28] LABS: Albumin * 2.9 gm/dl (3.4-5.0); BUN/Creatinine Ratio 24.2 (9.0-21.6); Bilirubin, Total 0.3 mg/dL (0.0-1.1); Ca. Corrected For Albumin 9.3 mg/dL (8.4-10.2); Calcium * 8.7 mg/dL (7.9-10.9); Total Protein 6.5 gm/dL (6.2-8.2)
[2016-10-16 10:23] LABS: Urine Bilirubin Negative (NEGATIVE); Urine Blood Negative /ul (NEGATIVE); Urine Ketone Negative (NEGATIVE); Urine Nitrite Negative (NEGATIVE); Urine Protein Negative (NEGATIVE); Urine Specific Gravity 1.025 SP.GR. (1.005-1.010); Urine Urobilinogen Normal (NORMAL); Urine pH 5.5 pH (5.0-7.0)
[2016-10-16 10:33] LABS: Urine Appearance Clear; Urine Bacteria None Seen; Urine Color Yellow; Urine RBC None Seen /hpf (0-5); Urine Squamous Epithelial Cell None Seen /hpf; Urine WBC None Seen /hpf (0-5); Urine Yeast TRACE
[2016-10-16] MEDS ORDERED: ONDANSETRON HCL/PF 2 MG/ML VIAL IV ONE (12:12)
[2016-10-16] MEDS ORDERED: HYDROmorphone HCL 1 MG/ML DISP.SYRIN IV ONE (12:12)
[2016-10-16] MEDS ORDERED: HYDROmorphone HCL 1 MG/ML DISP.SYRIN ONE (12:13)
[2016-10-16] MEDS ORDERED: ONDANSETRON HCL/PF 2 MG/ML VIAL ONE (12:13)
[2016-10-16 14:00] VITALS: BP 102/65
== END 2016-10-16 14:53 | disposition home or self-care (01) ==
LOC: ER 08:36
DX: R10.9 Unspecified abdominal pain (principal); C56.9 Malignant neoplasm of unspecified ovary; Z85.841 Personal history of malignant neoplasm of brain; G89.29 Other chronic pain; E03.9 Hypothyroidism, unspecified; J44.9 Chronic obstructive pulmonary disease, unspecified; E78.5 Hyperlipidemia, unspecified
CPT/HCPCS: 36415; 74177; 80053; 81001; 85025; 87493; 87798; 96374; 96375; 99283; J2405

== ENCOUNTER 2016-12-22 07:49 | Emergency (ER) | payer MEDICARE, BC ==
[2016-12-22 08:00] VITALS: BP 117/78
[2016-12-22] MEDS ORDERED: ONDANSETRON 4 MG TAB.RAPDIS PO ONE (08:42)
[2016-12-22] MEDS ORDERED: HYDROmorphone HCL 1 MG/ML DISP.SYRIN IM ONE (08:43)
[2016-12-22] MEDS ORDERED: HYDROmorphone HCL 1 MG/ML DISP.SYRIN ONE (08:57)
[2016-12-22] MEDS ORDERED: ONDANSETRON 4 MG TAB.RAPDIS ONE (08:58)
--- NOTE | 2016-12-22 08:59 | ERNOTE ---
Trauma/Assault HPI - General Stated Complaint: FELL OFF HORSE Source: patient Exam Limitations: no limitations - Immun/Allergies/Home Medications Immunizations: IMMUNIZATION HX Immunizations Up to Date Yes History of Influenza Vaccine No Hx Pneumococcal Vaccination No Allergies/Adverse Reactions: Allergies lorazepam Allergy (Verified 12/22/16 08:00) Home Medications: HOME MEDICATIONS Albuterol Sulfate [Proair Hfa] 8.5 gm IH PRN 07/23/15 [Last Taken Unknown] Levothyroxine Sodium [Synthroid] 50 mcg PO DAILY 07/23/15 [Last Taken Unknown] Pregabalin [Lyrica] 300 mg PO BID 07/23/15 [Last Taken Unknown] Simvastatin [Zocor] 40 mg PO HS 07/23/15 [Last Taken Unknown] Ondansetron [Zofran Odt] 4 mg PO Q6H PRN #20 tab 01/20/16 [Last Taken Unknown] Citalopram Hydrobromide [Citalopram HBr] 10 mg PO DAILY 10/16/16 [Last Taken Unknown] Cyanocobalamin [Vitamin B-12] 1,000 mcg PO DAILY 10/16/16 [Last Taken Unknown] Dexamethasone [Decadron] 2 mg PO DAILY 10/16/16 [Last Taken Unknown] Docusate Sodium [Colace] 100 mg PO BID 10/16/16 [Last Taken Unknown] Lactobacillus Rhamnosus GG [Culturelle] 1 tab PO DAILY 10/16/16 [Last Taken Unknown] Melatonin/Pyridoxine HCl (B6) [Melatonin 10 mg Tablet] 1 each PO DAILY 10/16/16 [Last Taken Unknown] Morphine Sulfate [Ms Contin] 45 mg PO BID 10/16/16 [Last Taken Unknown] Omeprazole [Prilosec] 20 mg PO DAILY 10/16/16 [Last Taken Unknown] Pregabalin [Lyrica] 300 mg PO BID #60 capsule 10/16/16 [Last Taken Unknown] Tiotropium Wheeler [Spiriva] 1 cap IH DAILY 10/16/16 [Last Taken Unknown] levETIRAcetam [Keppra] 500 mg PO BID 10/16/16 [Last Taken Unknown] - History of Present Illness Narrative: here for fall three days ago. she has had low back pain and leg pain since. She did not seek medical attention at that time. she has history of stage 4 ovarian cancer Review of Systems - Review of Systems Constitutional: Present: no symptoms reported EYE: Present: no symptoms reported ENT: Present: no symptoms reported Respiratory: Present: no symptoms reported Cardiology: Present: no symptoms reported Gastrointestinal/Abdominal: Present: no symptoms reported Genitourinary: Present: no symptoms reported Musculoskeletal: Present: See HPI - Patient's Past Medical History Patient History - Medical: Chronic Pain, Hypothyroidism Patient History - Cardiac/Respiratory: COPD, Hyperlipidemia Patient History - Cancer: Brain, Ovarian Patient History - Surgical Procedures: Back Surgery, Cancer Surgery, Hysterectomy, T & A Patient History - Other: None LMP (females 10-50): Menopausal - Family History Father Family History - Medical: Mother Family History - Medical: Family History - Cardiac/Respiratory: Myocardial Infarction - Social History Living Situations: home Abuse History: No History of abuse Psych History: Hx of Depression Smoking Status: Former smoker Have you smoked in the past 12 months: No Alcohol Use: none Drug Use: none - Immunizations Immunizations Up to Date: Yes Hx Pneumococcal Vaccination: No History of Influenza Vaccine: No Physical Exam - Physical Exam General Appearance: Present: wd/wn, alert, no apparent distress Head Exam: Present: normal inspection Neck: Present: normal inspection, nontender Respiratory: Present: no respiratory distress, normal breath sounds, no accessory muscle use, chest nontender, lungs clear Cardiovascular/Chest: Present: regular rate, rhythm, no murmur, normal peripheral pulses Back Exam: Present: normal inspection, other - she is tender in the lumbosacral region. no ecchymosis noted, she is thin and palpation is tender all over LS spine area Neurological Exam: Present: alert, oriented, normal mood/affect, no motor/ sensory deficits ED Progress - Vital Signs Patient's Vital Signs:: I have reviewed the patient's vital signs. Vital Signs: Vital Signs 12/22/16 07:55 Temperature 36.6 C Pulse Rate 78 Respiratory 16 Rate Blood Pressure 117/78 O2 Sat by Pulse 98 Oximetry - X-Ray X-Ray #1 X-Ray: lumbosacral - Progress/Reassessment Chief Complaint: Fall Departure Clinical Impression: Low back pain Qualifiers: Chronicity: acute Back pain laterality: bilateral Sciatica presence: without sciatica Qualified Code(s): M54.5 - Low back pain - Departure Disposition: Home self-care Condition: Fair Instructions: Chronic Pain Additional Instructions: please take your Morphine at home and follow up with your doctor as needed
--- OUTSIDE RECORDS SUMMARY | 2016-12-22 09:48 | XMS REPORT | Clinical Summary ---
:1950 Author Organization [employer] [place] [address] Care Team Providers Name Role Phone Unavailable Primary Care Provider Unavailable Source Comments This disclosure is being made pursuant to the [employer] program and maynot contain all information available regarding this patient.[employer] Allergies No Known Allergies Current Medications Be aware [...] daily. Active Problems No known active problems Encounters Date Type Specialty Care Team Description 10/06/2016 Telephone Pain Medicine Gaetano Burger DO from Last 3 Months Family History Medical History Relation Name Comments COPD Father Cancer Father Diabetes Maternal Grandmother Heart disease Mother High cholesterol Mother Hypertension Mother Relation Name Status Comments Father Maternal Grandmother Mother Social History Tobacco Use Types Packs/Day Years Used Date Former Smoker 1 35 Quit: 08/05/2004 Alcohol Use Drinks/Week oz/Week Comments No Sex Assigned at Date Recorded Not on file Last Filed Vital Signs Vital Sign Reading Time Taken Blood Pressure 115/67 02/18/2016 1:25 PM CDT Pulse 52 02/18/2016 1:25 PM CDT Temperature - - Respiratory Rate - - Oxygen Saturation - - Inhaled Oxygen Concentration - - Weight - - Height - - Body Mass Index - - Plan of Treatment Health Maintenance Due Date Last Done Comments Hepatitis C Screening 1968 Tetanus/Pertussis (1 - Tdap) 1969 Colonoscopy 2000 Mammogram 2000 Well Adult Visit 2000 Zoster Vaccine 60+ 2010 Bone Density 11/18/2015 Pneumococcal Low/Medium Risk 65+ (1 of 2 - PCV13) 11/18/2015 INFLUENZA IMMUNIZATION (#1) 2017 Results Not on filefrom Last 3 Months Insurance Payer Benefit Plan / Subscriber ID Type Phone Address Group MEDICARE MEDICARE A AND B [id number] [phone] [address] [place] [address] [employer] [place] P[place] [id number] Out of State [phone] [address] [facility] PROVIDERS ONLY [address] [place] [address] Work: [address] [facility] [phone] [place], [place] [address] Home: [phone] [facility]
--- OUTSIDE RECORDS SUMMARY | 2016-12-22 09:49 | XMS REPORT | Encounter Summary ---
:1950 Author Organization [email or web address] [place] [address] Care Team Providers Name Role Phone Unavailable Primary Care Provider Unavailable Reason for Visit Reason Comments Medication Refill Encounter Details Date Type Department Care Team Description 09/08/2016 Refill [facility] Daily Zacarias MD [address] [facility] [address] [place] [address] [place] [address] Social History Tobacco Use Types Packs/Day Years Used Date Former Smoker 1 35 Quit: 08/05/2004 Alcohol Use Drinks/Week oz/Week Comments No Sex Assigned at Date Recorded Not on file as of this encounter Plan of Treatment Not on fileas of this encounter Visit Diagnoses Not on filein this encounter
--- OUTSIDE RECORDS SUMMARY | 2016-12-22 09:49 | XMS REPORT | Encounter Summary ---
:1950 Author Organization [employer] [place] [address] Care Team Providers Name Role Phone Unavailable Primary Care Provider Unavailable Reason for Visit Reason Comments Medication Refill Encounter Details Date Type Department Care Team Description 05/06/2016 Refill [facility] Gaetano Burger, DO [address] [facility] [address] [place] [address] [place] [address] Social History Tobacco Use Types Packs/Day Years Used Date Former Smoker 1 35 Quit: 08/05/2004 Alcohol Use Drinks/Week oz/Week Comments No Sex Assigned at Date Recorded Not on file as of this encounter Plan of Treatment Not on fileas of this encounter Visit Diagnoses Not on filein this encounter
--- OUTSIDE RECORDS SUMMARY | 2016-12-22 09:49 | XMS REPORT | Encounter Summary ---
:1950 Author Organization [employer] [place] [address] Care Team Providers Name Role Phone Unavailable Primary Care Provider Unavailable Encounter Details Date Type Department Care Team Description 05/12/2016 Telephone [facility] Lucille Mccann RN [address] [place] [address] Social History Tobacco Use Types Packs/Day Years Used Date Former Smoker 1 35 Quit: 08/05/2004 Alcohol Use Drinks/Week oz/Week Comments No Sex Assigned at Date Recorded Not on file as of this encounter Plan of Treatment Not on fileas of this encounter Visit Diagnoses Not on filein this encounter
--- OUTSIDE RECORDS SUMMARY | 2016-12-22 09:49 | XMS REPORT | Encounter Summary ---
:1950 Author Organization [employer] [place] [address] Care Team Providers Name Role Phone Unavailable Primary Care Provider Unavailable Reason for Visit Reason Comments Medication Refill Encounter Details Date Type Department Care Team Description 07/14/2016 Refill [facility] Daily Zacarias MD [address] [facility] [address] [place] [address] [place] [address] Social History Tobacco Use Types Packs/Day Years Used Date Former Smoker 1 35 Quit: 08/05/2004 Alcohol Use Drinks/Week oz/Week Comments No Sex Assigned at Date Recorded Not on file as of this encounter Plan of Treatment Not on fileas of this encounter Visit Diagnoses Not on filein this encounter
--- OUTSIDE RECORDS SUMMARY | 2016-12-22 09:50 | XMS REPORT | Encounter Summary ---
:1950 Author Organization [employer] [place] [address] Care Team Providers Name Role Phone Unavailable Primary Care Provider Unavailable Reason for Visit Reason Comments Medication Refill Encounter Details Date Type Department Care Team Description 04/13/2016 Refill [facility] Gaetano Burger, DO [address] [facility] [address] [place] [address] [place] [address] Social History Tobacco Use Types Packs/Day Years Used Date Former Smoker 1 35 Quit: 08/05/2004 Alcohol Use Drinks/Week oz/Week Comments No Sex Assigned at Date Recorded Not on file as of this encounter Plan of Treatment Not on fileas of this encounter Visit Diagnoses Not on filein this encounter
== END 2016-12-22 09:28 | disposition home or self-care (01) ==
LOC: ER 07:49
DX: M54.5 Low back pain (principal); Z85.43 Personal history of malignant neoplasm of ovary; Z85.841 Personal history of malignant neoplasm of brain; Z87.891 Personal history of nicotine dependence; V80.010A Animal-rider injured by fall from or being thrown from horse in noncollision accident, initial encounter

== ENCOUNTER 2017-03-23 18:07 | Emergency (ER) | payer MEDICARE, BC ==
[2017-03-23 18:15] VITALS: BP 123/78
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
== END 2017-03-23 19:00 | disposition home or self-care (01) ==
LOC: ER 18:07
DX: S50.811A Abrasion of right forearm, initial encounter (principal); S50.11XA Contusion of right forearm, initial encounter; E03.9 Hypothyroidism, unspecified; G89.29 Other chronic pain; J44.9 Chronic obstructive pulmonary disease, unspecified; E78.5 Hyperlipidemia, unspecified; Z85.43 Personal history of malignant neoplasm of ovary; Z85.841 Personal history of malignant neoplasm of brain; W18.39XA Other fall on same level, initial encounter; Z91.81 History of falling; Y93.89 Activity, other specified; Y92.009 Unspecified place in unspecified non-institutional (private) residence as the place of occurrence of the external cause